=== PATIENT | female | born 1955 ===

== ENCOUNTER 2023-11-14 08:02 | Day surgery (SDC) | payer OTHER ==
[2023-11-07 13:14] LABS: PH,URINE 5.5 (5.0-8.0); URINE APPEARANCE Clear; URINE BILIRRUBIN Negative (NEGATIVE); URINE BLOOD Small; URINE COLOR Yellow; URINE GLUCOSE Negative (NEGATIVE); URINE KETONE Negative (NEGATIVE); URINE LEUKOCYTE Moderate; URINE NITRATE Negative; URINE PROTEIN Trace (NEGATIVE); URINE UROBILINOGEN 0.2 E.U./dl
[2023-11-07 13:14] LABS: HEMATOCRIT 42.1 % (36.0-45.00); HEMOGLOBIN 14.3 g/dL (12.0-15.00); MEAN CELL VOLUME 89.7 fL (80.00-100.00); MEAN CORPUSCULAR HEMOGLOBIN 30.5 pg (27.00-32.0); PLATELET COUNT 151 K/uL (150-450); RED BLOOD COUNT 4.69 M/uL (4.00-6.00); RED CELL DISTRIBUTION WIDTH 14.2 % (11.5-14.5)
[2023-11-07 13:15] LABS: URINE EPITHELIAL CELLS 60.1 uL (0.0-38.8); URINE RBC 57.7 uL (0.0-20.8); URINE WBC 95.6 uL (0.0-23.2)
[2023-11-07 13:30] LABS: URINE CAST 0.15 uL (0.0-1.40)
[2023-11-07 13:36] LABS: INR 1.01; PARTIAL THROMBOPLASTIN TIME 29.3 SECONDS (22.0-34.0)
[2023-11-07 14:12] LABS: ALBUMIN 3.9 gm/dL (3.4-5.0); BILIRUBIN TOTAL 0.58 mg/dL (0.3-1.2); CALCIUM 9.4 mg/dL (8.5-10.1); CREATININE SERUM 0.76 mg/dL (0.55-1.02); GFR 76.14; GLOBULINA 3.5 G/DL (2.4-3.5); POTASSIUM 4.28 mEq/L (3.5-5.1); TOTAL PROTEIN 7.4 gm/dL (6.4-8.2)
[2023-11-07 15:22] VITALS: BP 150/81
[~2023-11-14] VITALS: Ht 160 cm; Wt 76.2 kg
[~2023-11-14 08:02] MED LIST: CHILDREN'S ASPI81 MG PO; COZAAR25 MG PO; LIPITOR40 MG PO; NABUMETONE750 MG PO; PEPCID AC20 MG PO; SYNTHROID100 MCG PO; TENORMIN100 M1 PO
[2023-11-14] MEDS ORDERED: LIDOCAINE HCL 1%/EPINEPHRINE 20ML VIAL IJ ONE ×2 (09:47→10:45)
[2023-11-14] MEDS ORDERED: BUPIVACAINE HCL/Mpf 0.5% 10ML VIAL ONE (09:47)
[2023-11-14] MEDS ORDERED: METRONIDAZOLE/SODIUM CHLORIDE 500 MG/100 ML PIGGYBACK IV ONE ×2 (09:47→10:45)
[2023-11-14] MEDS ORDERED: POVIDONE-IODINE 118 ML BOTT TOP ONE ×2 (09:47→10:45)
[2023-11-14] MEDS ORDERED: HEMOSTATIC MATRIX 1 KIT KIT TOP ONE ×2 (09:47→11:00)
[2023-11-14] MEDS ORDERED: DIBUCAINE 30 GM TUBE ONE (09:47)
[2023-11-14] MEDS ORDERED: CEFTRIAXONE SODIUM 2,000 MG VIAL ONE (09:48)
[2023-11-14] MEDS ORDERED: levoFLOXacin 750 MG TABLET PO ONE (10:45)
[2023-11-14] MEDS ORDERED: BUPIVACAINE HCL/PF 0.25% 30ML VIAL InF ONE (10:45)
[2023-11-14] MEDS ORDERED: DIBUCAINE 15 GM OINT..GM. TUBE RECTAL ONE (11:00)
[2023-11-14] MEDS ORDERED: TAMSULOSIN HCL 0.4 MG CAP PO ONE ×2 (11:15→16:21)
[2023-11-14] MEDS ORDERED: OXYC1TAB9 PO (11:48)
== END 2023-11-14 17:45 | disposition home or self-care (01) ==
LOC: CIR.AMB 08:02
PROVIDERS: ATTEND Surgery
DX: K62.82 Dysplasia of anus (principal); K64.8 Other hemorrhoids; K62.89 Other specified diseases of anus and rectum; A63.0 Anogenital (venereal) warts; K62.5 Hemorrhage of anus and rectum; Z88.0 Allergy status to penicillin